=== PATIENT | male | born 1960 | race Caucasian/White ===

== ENCOUNTER → 2020-10-31 | Outpatient (CLI) | payer OTHER ==
[~2020-10-31] MED LIST: AMLODIPINE BESYL5 MG PO; ASPIRIN EC81 MG PO; ATORVASTATIN CA20 MG PO; CLOPIDOGREL75 MG PO; LEXAPRO10 MG PO; NORVASC2.5 MG PO; PROTONIX40 MG PO; RANEXA500 MG PO
== END ==
LOC: HEART 5 07:47
DX: I47.2 Ventricular tachycardia (principal); E55.9 Vitamin D deficiency, unspecified; I51.7 Cardiomegaly; R93.1 Abnormal findings on diagnostic imaging of heart and coronary circulation; Z95.0 Presence of cardiac pacemaker
CPT/HCPCS: 78452; 93306; A9502; J2785

== ENCOUNTER → 2022-04-16 | Outpatient (CLI) | payer OTHER | LOC: CT 07:40 | DX: R06.02 Shortness of breath (principal); R93.89 Abnormal findings on diagnostic imaging of other specified body structures; R91.8 Other nonspecific abnormal finding of lung field | CPT/HCPCS: 71270; Q9967 ==